=== PATIENT | female | born 1960 | race Caucasian/White ===

== ENCOUNTER → 2020-07-18 | Outpatient (CLI) | payer MEDICARE ==
[~2020-07-18] MED LIST: AEROCHAMBER1 EA XX; PREDNISONE20 MG PO; TESSALON PERLE100 MG PO; VENTOLIN HFA 66.7 GM INH
== END ==
LOC: EXRD 13:00
DX: E07.89 Other specified disorders of thyroid (principal); R60.0 Localized edema
CPT/HCPCS: 76536; 93971

== ENCOUNTER 2021-01-21 01:37 | Inpatient (IN) | payer MEDICARE ==
[~2021-01-21] VITALS: Ht 167.6 cm; Wt 120.2 kg
[2021-01-21 02:48] LABS: HEMOGLOBIN 15.5 gm/dl (12.3-15.3); RED BLOOD COUNT 4.95 M/UL (4.00-5.10); WHITE BLOOD COUNT 7.6 K/UL (4.5-11.0)
[2021-01-21 03:06] LABS: BUN/CREATININE RATIO 10 (0-10)
[2021-01-21] MEDS ORDERED: VITAMIN D325 MCG PO (13:15)
[2021-01-21] MEDS ORDERED: ASPIRIN EC81 MG PO (13:15)
[2021-01-21] MEDS ORDERED: PROAIR HFA8.5 GM INH (13:16)
--- NOTE | 2021-01-21 19:45 | NUR ---
RESPIRATORY THERAPIST AT BEDSIDE TO PLACE PT ON BIPAP. RESPIRATORY THERAPIST PLACED PT ON BIPAP AND PT IMMEDIATELY MADE HER REMOVE IT. PT REFUSED TO WEAR BIPAP AND STATED THAT SHE WOULD LAY IN THE PRONE POSITION, BECAUSE THAT'S HOW THEY HAD HER IN THE ER AND IT REALLY HELPED HER O2 SATURATION. I EDUCATED THE PT REGARDING THE USE/NEED TO WEAR THE BIPAP. PT STILL REFUSED. PT POSITIONED IN PRONE POSITION. O2 SATURATION SLOWLY RETURNED TO AROUND 95%. NO S/S OF DISTRESS NOTED. PT IN PRONE POSITION AND TOLERATING AT THIS TIME.
--- NOTE | 2021-01-21 19:45 | NUR ---
NOTIFIED POURED CONCRETE WALL TECHNICIAN OF PT CONDITION/SITUATION AND ORDER FOR BIPAP. PT HAS NEVER BEEN ON BIPAP BEFORE. POURED CONCRETE WALL TECHNICIAN AWARE OF SITUATION.
--- NOTE | 2021-01-22 00:38 | NUR ---
PT'S O2 SATURATION DROPPED TO 86% AND WAS NOT COMING UP. I ENTERED PT'S ROOM AND EDUCATED PT ON THE NEED FOR BIPAP. PT BECAME REALLY UPSET AND STATED THAT SHE DID NOT WANT TO BE PLACED ON THE BIPAP. PT THREATENED TO SIGN OUT AMA. I EXPLAINED THE RISKS AND FACTORS ASSOCIATED WITH PT LEAVING AMA. I OFFERED TO CALL THE DOCTOR TO TRYING TO GET SOMETHING TO HELP HER RELAX SO THAT SHE WOULD BE ABLE TO TOLERATE THE BIPAP. PT AGREED TO THIS DECISION. SEE PROVIDER NOTIFICATIONS FOR DETAILS.
[2021-01-22 03:48] LABS: WHITE BLOOD COUNT 11.1 K/UL (4.5-11.0)
[2021-01-22 03:49] LABS: HEMOGLOBIN 12.8 gm/dl (12.3-15.3); RED BLOOD COUNT 4.21 M/UL (4.00-5.10)
[2021-01-22 04:12] LABS: BUN/CREATININE RATIO 18 (0-10)
--- NOTE | 2021-01-22 08:02 | NUR ---
PATIENT ON AIRVO PRONING TO KEEP UP O2 SATS. WILL CONTINUE TO MONITOR.
[2021-01-23 06:28] LABS: HEMOGLOBIN 13.1 gm/dl (12.3-15.3); RED BLOOD COUNT 4.25 M/UL (4.00-5.10); WHITE BLOOD COUNT 12.1 K/UL (4.5-11.0)
[2021-01-23 06:56] LABS: BUN/CREATININE RATIO 24 (0-10)
--- NOTE | 2021-01-23 22:59 | NUR ---
@2958 PT SOA, TOOK BIPAP OFF, I HAVE BEEN TRYING ALL SHIFT TO GET PT TO WEAR BIPAP, DAYSSYMONE RN STATED SHE WOULD NOT WEAR IT, EDUCATED PT ON THE IMPORTANCE OF BIPAP, 02 ANYWHERE FROM 86-88 ON 100% AIRVO AND 15L NRB TOGETHER, PT WILL NOT PUT BIPAP BACK ON AT THIS TIME
[2021-01-24 06:50] LABS: HEMOGLOBIN 13.8 gm/dl (12.3-15.3); RED BLOOD COUNT 4.4 M/UL (4.00-5.10); WHITE BLOOD COUNT 12.6 K/UL (4.5-11.0)
[2021-01-24 07:15] LABS: BUN/CREATININE RATIO 23 (0-10)
[2021-01-25 02:46] LABS: HEMOGLOBIN 14.7 gm/dl (12.3-15.3); RED BLOOD COUNT 4.7 M/UL (4.00-5.10); WHITE BLOOD COUNT 10.1 K/UL (4.5-11.0)
[2021-01-25 03:27] LABS: BUN/CREATININE RATIO 30 (0-10)
--- NOTE | 2021-01-25 13:06 | NUR ---
01/25/[address] MORA THAT PT IS ANXIOUS DUE TO BIPAP, EXPLAINED THAT PATIENT COMES OFF BIPAP FOR SIPS OF WATER FOR A FEW MINUTES AT A TIME AND THAT HER OXYGEN DROPS. STATES TO GIVE HER MORPHINE 2MG IVP X1
[2021-01-26 02:50] LABS: BUN/CREATININE RATIO 32 (0-10)
[2021-01-26 04:11] LABS: HEMOGLOBIN 14.5 gm/dl (12.3-15.3); RED BLOOD COUNT 4.87 M/UL (4.00-5.10); WHITE BLOOD COUNT 9.9 K/UL (4.5-11.0)
[2021-01-27 03:56] LABS: HEMOGLOBIN 15.5 gm/dl (12.3-15.3); RED BLOOD COUNT 4.89 M/UL (4.00-5.10); WHITE BLOOD COUNT 9.9 K/UL (4.5-11.0)
[2021-01-27 04:23] LABS: BUN/CREATININE RATIO 44 (0-10)
--- NOTE | 2021-01-27 15:34 | NUR ---
CALLED AND LEFT VOICEMAIL AT 0902 AM ON [phone] TO INFORM FAMILY OF PATIENTS STATUS AND INTUBATION.
[2021-01-28 05:36] LABS: RED BLOOD COUNT 4.72 M/UL (4.00-5.10)
[2021-01-28 05:37] LABS: WHITE BLOOD COUNT 16.8 K/UL (4.5-11.0)
[2021-01-29 07:37] LABS: RED BLOOD COUNT 3.88 M/UL (4.00-5.10); WHITE BLOOD COUNT 7.5 K/UL (4.5-11.0)
[2021-01-30 06:06] LABS: HEMOGLOBIN 11.5 gm/dl (12.3-15.3); RED BLOOD COUNT 3.72 M/UL (4.00-5.10); WHITE BLOOD COUNT 7.7 K/UL (4.5-11.0)
[2021-01-31 13:13] LABS: HEMOGLOBIN 11.3 gm/dl (12.3-15.3); RED BLOOD COUNT 3.63 M/UL (4.00-5.10); WHITE BLOOD COUNT 6.4 K/UL (4.5-11.0)
[2021-02-01 05:39] LABS: HEMOGLOBIN 11.6 gm/dl (12.3-15.3); RED BLOOD COUNT 3.74 M/UL (4.00-5.10)
[2021-02-01 05:40] LABS: WHITE BLOOD COUNT 9.2 K/UL (4.5-11.0)
[2021-02-02 06:25] LABS: RED BLOOD COUNT 3.51 M/UL (4.00-5.10)
[2021-02-02 06:39] LABS: WHITE BLOOD COUNT 12.2 K/UL (4.5-11.0)
[2021-02-03 08:18] LABS: HEMOGLOBIN 11.6 gm/dl (12.3-15.3); RED BLOOD COUNT 3.69 M/UL (4.00-5.10)
[2021-02-03 08:32] LABS: WHITE BLOOD COUNT 15.6 K/UL (4.5-11.0)
[2021-02-04 06:49] LABS: HEMOGLOBIN 11.2 gm/dl (12.3-15.3); RED BLOOD COUNT 3.57 M/UL (4.00-5.10); WHITE BLOOD COUNT 15.5 K/UL (4.5-11.0)
[2021-02-06 07:24] LABS: HEMOGLOBIN 10.2 gm/dl (12.3-15.3); RED BLOOD COUNT 3.25 M/UL (4.00-5.10)
[2021-02-06 07:26] LABS: WHITE BLOOD COUNT 23.4 K/UL (4.5-11.0)
[2021-02-06 12:13] LABS: HBSAG SCREEN Negative (Negative); HEP A AB, IGM Negative (Negative); HEP B CORE AB, IGM Negative (Negative); HEP C VIRUS AB <0.1 (0.0-0.9)
[2021-02-07 07:02] LABS: HEMOGLOBIN 10.6 gm/dl (12.3-15.3); RED BLOOD COUNT 3.33 M/UL (4.00-5.10); WHITE BLOOD COUNT 23.5 K/UL (4.5-11.0)
[2021-02-07 16:16] LABS: HEMOGLOBIN 10.1 gm/dl (12.3-15.3)
[2021-02-07 16:21] LABS: RED BLOOD COUNT 3.14 M/UL (4.00-5.10); WHITE BLOOD COUNT 19.3 K/UL (4.5-11.0)
--- NOTE | 2021-02-07 17:08 | NUR ---
1650: PATIENT PRONED WITH THE ASSISTANCE OF ASSOCIATE FINANCIAL ADVISOR AND NURSING STAFF. ALLYVEN PROTECTORS APPLIED TO PRESSURE POINTS. PILLOWS UNDER PATIENT ALONG WITH PRONING PILLOW FOR THE RESPIRATORY EQUIPMENT. ZEMURON DRIP INITIATED AND SEDATION IS CONTINUED. PATIENT O2 IS 82% DESPITE MAXIMUM OXYGENATION ON THE VENTILATOR. Greg NAVARRETE AWARE AND FAMILY HAS BEEN UPDATED OF PATIENT STATUS.
== END 2021-02-07 22:34 | disposition expired | DRG 207 ==
LOC: ER1 01:37 → CCU 04:20 → MED SURG 4 04:20 → CDU 04:20 → MED SURG 4 15:29 → PROG CARE 01-24 14:22 → CCU 01-26 11:25
PROVIDERS: Family Medicine; Internal Medicine; Internal Medicine Nephrology; Internal Medicine Pulmonary Disease; Nurse Practitioner Pediatrics; Surgery; ADMIT Internal Medicine
PROC: 8E0ZXY6 Isolation (ICD-10-PCS; 2021-01-21)
PROC: XW033H5 Introduction of Tocilizumab into Peripheral Vein, Percutaneous Approach, New Technology Group 5 (ICD-10-PCS; 2021-01-21)
PROC: 3E0333Z Introduction of Anti-inflammatory into Peripheral Vein, Percutaneous Approach (ICD-10-PCS; 2021-01-21)
PROC: XW033E5 Introduction of Remdesivir Anti-infective into Peripheral Vein, Percutaneous Approach, New Technology Group 5 (ICD-10-PCS; 2021-01-21)
PROC: 5A1955Z Respiratory Ventilation, Greater than 96 Consecutive Hours (ICD-10-PCS; 2021-01-27)
PROC: 5A1D70Z Performance of Urinary Filtration, Intermittent, Less than 6 Hours Per Day (ICD-10-PCS; 2021-01-27)
PROC: 0BH17EZ Insertion of Endotracheal Airway into Trachea, Via Natural or Artificial Opening (ICD-10-PCS; 2021-01-27)
PROC: 02HV33Z Insertion of Infusion Device into Superior Vena Cava, Percutaneous Approach (ICD-10-PCS; 2021-01-27)
PROC: B548ZZA Ultrasonography of Superior Vena Cava, Guidance (ICD-10-PCS; 2021-01-27)
PROC: 3E033XZ Introduction of Vasopressor into Peripheral Vein, Percutaneous Approach (ICD-10-PCS; 2021-01-27)
PROC: 0DH63UZ Insertion of Feeding Device into Stomach, Percutaneous Approach (ICD-10-PCS; 2021-01-29)
PROC: 3E0G76Z Introduction of Nutritional Substance into Upper GI, Via Natural or Artificial Opening (ICD-10-PCS; 2021-01-29)
PROC: 5A1D70Z Performance of Urinary Filtration, Intermittent, Less than 6 Hours Per Day (ICD-10-PCS; principal; 2021-02-05)
PROC: 02HV33Z Insertion of Infusion Device into Superior Vena Cava, Percutaneous Approach (ICD-10-PCS; 2021-02-05)
PROC: B548ZZA Ultrasonography of Superior Vena Cava, Guidance (ICD-10-PCS; 2021-02-05)
DX: U07.1 COVID-19 (principal); J12.82 Pneumonia due to coronavirus disease 2019; J80 Acute respiratory distress syndrome; G93.41 Metabolic encephalopathy; R65.21 Severe sepsis with septic shock; A41.9 Sepsis, unspecified organism; J15.9 Unspecified bacterial pneumonia; N17.0 Acute kidney failure with tubular necrosis; J44.0 Chronic obstructive pulmonary disease with (acute) lower respiratory infection; T82.838A Hemorrhage due to vascular prosthetic devices, implants and grafts, initial encounter; M62.82 Rhabdomyolysis; E87.4 Mixed disorder of acid-base balance; D50.9 Iron deficiency anemia, unspecified; D72.828 Other elevated white blood cell count; T38.0X5A Adverse effect of glucocorticoids and synthetic analogues, initial encounter; E86.0 Dehydration; E87.6 Hypokalemia; L89.156 Pressure-induced deep tissue damage of sacral region; L89.812 Pressure ulcer of head, stage 2; E11.65 Type 2 diabetes mellitus with hyperglycemia; E87.5 Hyperkalemia; E66.01 Morbid (severe) obesity due to excess calories; G47.33 Obstructive sleep apnea (adult) (pediatric); D69.6 Thrombocytopenia, unspecified; F41.9 Anxiety disorder, unspecified; K59.00 Constipation, unspecified; Y84.0 Cardiac catheterization as the cause of abnormal reaction of the patient, or of later complication, without mention of misadventure at the time of the procedure; Z90.49 Acquired absence of other specified parts of digestive tract; Z98.42 Cataract extraction status, left eye; Z98.41 Cataract extraction status, right eye; Z82.49 Family history of ischemic heart disease and other diseases of the circulatory system; Z87.891 Personal history of nicotine dependence; Z79.82 Long term (current) use of aspirin; Z99.81 Dependence on supplemental oxygen; Z88.5 Allergy status to narcotic agent; Z88.0 Allergy status to penicillin
CPT/HCPCS: 31500; 36415; 36600; 71045; 80048; 80053; 80074; 80202; 81001; 82550; 82553; 82570; 82728; 82803; 82962; 83036; 83605; 83615; 83690; 83735; 83874; 83880; 84100; 84133; 84156; 84300; 84484; 85007; 85025; 85027; 85379; 85384; 85610; 85730; 86140; 87040; 87081; 89050; 90935; 93005; 94003; 94640; 94660; 94664; 94760; 96374; 99285; A6212; C1752; C9113; J0456; J0692; J1100; J1205; J1644; J1650; J1940; J2185; J2248; J2270; J2550; J2704; J2720; J2765; J2920; J3010; J3370; J3480; J7030; J7050; J7070; P9047; Q0249; Q9967; U0002